=== PATIENT | male | born 1995 | race Two or more races ===

== ENCOUNTER 2017-09-17 16:18 | Emergency (ER) | payer SELFPAY ==
[~2017-09-17] VITALS: Ht 172.7 cm; Wt 59.0 kg
--- NOTE | 2017-09-17 17:25 | Emergency Room Report ---
History of Present Illness General Chief Complaint: Skin Rash/Abscess Source: Patient Present Illness HPI 22 YO Male presents to the ED c/o localized 06/10 in severity pain, swelling, and erythema of anterior left thigh x 4 days. pt. reports he was squeezing pus from lesion x 2 days. denies fevers, chills, pain out of proportion, pt. is unsure when his last tetanus vaccination was. Pt. denies sudden onset of pain, denies itching, reports symptoms have been progressive, denies abdominal pain or swelling of the distal portion of extremity. Denies lesions/rashes elsewhere on the body. Denies new medications or body washes or creams. Denies swelling of the lips, tongue , throat or airway. Denies wheezing, or shortness of breath. Denies recent travel, recent illness or ill contacts. denies blisters , oral lesions, or sloughing of the skin. Denies CP, Palpitations, LOC, AMS, dizziness, Changes in Vision, Sensation, paresthesias, or a sudden severe headache. Allergies: Coded Allergies: PENICILLINS (Verified Allergy, Unknown, 09/17/17) Patient History Past Medical History: see triage record Past Surgical History: none Pertinent Family History: none Reviewed Nursing Documentation: PMH: Agreed, PSxH: Agreed Nursing Documentation-PMH Past Medical History: No Stated History Review of Systems All Other Systems: negative except mentioned in HPI Physical Exam Vital Signs Date Time Temp Pulse Resp B/P (MAP) Pulse Ox O2 Delivery O2 Flow Rate FiO2 09/17/17 16:45 98.1 70 16 123/77 99 Room Air Sp02 EP Interpretation: reviewed, normal General Appearance: no apparent distress, alert, GCS 15, non-toxic Head: normocephalic, atraumatic Eyes: bilateral eye normal inspection, bilateral eye PERRL ENT: hearing grossly normal, normal pharynx, no angioedema, normal voice Neck: full range of motion Respiratory: chest non-tender, lungs clear, normal breath sounds, no wheezing, speaking full sentences Cardiovascular #1: regular rate, rhythm, normal capillary refill Gastrointestinal: non tender, soft, no guarding, no rebound Rectal: deferred Musculoskeletal: back normal, gait/station normal, normal range of motion, no calf tenderness, inflammation - anterior right thigh, tender - ttp to the anterior right thigh. Neurologic: alert, oriented x3, responsive, motor strength/tone normal, sensory intact, normal gait, speech normal Psychiatric: judgement/insight normal, memory normal, mood/affect normal Skin: normal color, no rash, warm/dry, well hydrated, other - draining superficial abscess with induration approximately 1.5cm in diameter with 2cm of surrounding erythema and increased temperature to palpation. no blisters, no vesicles Lymphatic: no adenopathy Medical Decision Making PA Attestation Dr. Hernandez is my supervising Physician whom patient management has been discussed with. Diagnostic Impression: Primary Impression: Abscess ER Course 22 YO Male presents to the ED c/o localized 06/10 in severity pain, swelling, and erythema of anterior left thigh x 4 days. pt. reports he was squeezing pus from lesion x 2 days. denies fevers, chills, pain out of proportion, pt. is unsure when his last tetanus vaccination was. Pt. denies sudden onset of pain, denies itching, reports symptoms have been progressive, denies abdominal pain or swelling of the distal portion of extremity. Denies lesions/rashes elsewhere on the body. Denies new medications or body washes or creams. Denies swelling of the lips, tongue , throat or airway. Denies wheezing, or shortness of breath. Denies recent travel, recent illness or ill contacts. denies blisters , oral lesions, or sloughing of the skin. Denies CP, Palpitations, LOC, AMS, dizziness, Changes in Vision, Sensation, paresthesias, or a sudden severe headache. Ddx considered but are not limited to cellulitis, abscess, cystic acne, necrotizing fasciitis, insect bite. Vital signs: are WNL, pt. is afebrile H&PE are most consistent with draining superficial abscess with induration approximately 1.5cm in diameter with 2cm of surrounding erythema and increased temperature to palpation. no blisters, no vesicles ORDERS: none required at this time, the diagnosis is clinical ED INTERVENTIONS: -Spivey PO - Area of Erythema area is marked with a skin pen- d/w pt. to observe for progression of erythema and swelling as this would indicate progression of infeciton. - Tetanus -bacitracin & sterile dressing. -Pt. given ED return precautions with worsening or new symptoms. DISCHARGE: At this time pt. is stable for d/c to home. Will provide printed patient care instructions, and any necessary prescriptions. Care plan and follow up instructions have been discussed with the patient prior to discharge. Last Vital Signs Date Time Temp Pulse Resp B/P (MAP) Pulse Ox O2 Delivery O2 Flow Rate FiO2 09/17/17 16:45 98.1 70 16 123/77 99 Room Air Disposition: HOME, SELF-CARE Condition: Stable Scripts Acetaminophen* (TYLENOL EXTRA STRENGTH*) 500 Mg Tablet 500 MG ORAL Q6H, #20 TAB 0 Refills Prov: Malou Nova 09/17/17 Mupirocin Calcium (Bactroban) 15 Gm Cream..g. 1 APPLIC TOPIC THREE TIMES A DAY, #15 GM Prov: Malou Nova 09/17/17 Trimethoprim/Sulfamethoxazole 160/800* (BACTRIM DS TABLET*) 1 Each Tablet 1 TAB ORAL TWICE A DAY for 7 Days, #14 TAB Prov: Malou Nova 09/17/17 Cephalexin* (KEFLEX*) 500 Mg Capsule 500 MG ORAL EVERY 12 HOURS for 7 Days, #14 CAP 0 Refills Prov: Malou Nova 09/17/17 Patient Instructions: Abscess Additional Instructions: Take medications as directed. Follow up with a Primary Care Provider in 3 days, even if your symptoms have resolved. --Please review list of primary care clinics, if you do not already have a primary care provider Return sooner to ED if new symptoms occur, or current symptoms become worse. - Please note that this Emergency Department Report was dictated using [employer] twisting department technology software, occasionally this can lead to erroneous entry secondary to interpretation by the dictation equipment. Malou Nova Sep 17, 2017 17:25
[2017-09-17] MEDS ORDERED: Bacitracin Oint UD TOPIC ONE (17:30)
[2017-09-17] MEDS ORDERED: Tetanus/Diptheria/Pertussis Vaccine 0.5ml Syr IM ONE (17:30)
[2017-09-17] MEDS ORDERED: BACTROBAN CR1 APPLIC TOPIC (17:56)
[2017-09-17] MEDS ORDERED: BACTRIM DS TAB1 EAC1 ORAL (17:56)
[2017-09-17] MEDS ORDERED: CEPHALEXIN500 MG ORAL (17:56)
[2017-09-17] MEDS ORDERED: TYLENOL EXTRA500 MG ORAL (17:56)
[2017-09-17] MEDS ORDERED: Norco 7.5mg/325mg tab ORAL ONE (18:00)
[2017-09-17 18:18] VITALS: BP 124/71
== END 2017-09-17 18:20 | disposition home or self-care (01) ==
LOC: EMR 17:20
DX: L02.415 Cutaneous abscess of right lower limb (principal); Z23 Encounter for immunization; Z88.0 Allergy status to penicillin
CPT/HCPCS: 90471; 90715; 99283